=== PATIENT | female | born 2000 | race Caucasian/White ===

== ENCOUNTER 2020-08-13 06:09 | Emergency (ER) | payer OTHER ==
[~2020-08-13] VITALS: Ht 165.1 cm; Wt 64.0 kg
[2020-08-13] MEDS ORDERED: ONDANSETRON ODT 4 MG ONE (06:40)
[2020-08-13] MEDS ORDERED: ONDANSETRON ODT 4 MG PO ONE (07:00)
[2020-08-13 07:02] LABS: BASOPHILS % (AUTO) 0 % (0-1); EOSINOPHILS % (AUTO) 1 % (1-7); LYMPHOCYTES % (AUTO) 36 % (22-44); MEAN CORPUSCULAR HEMOGLOBIN 30.2 pg (27.0-34.8); MEAN CORPUSCULAR HGB CONC 33.8 g/dL (32.4-35.8); MEAN PLATELET VOLUME 10.3 fL (7.4-10.4); MONOCYTES % (AUTO) 5 % (2-9); NEUTROPHILS % (AUTO) 58 % (42-75); PLATELET COUNT 209 x10^3/uL (130-400); RED BLOOD COUNT 4.78 x10^6/uL (3.82-5.3); RED CELL DISTRIBUTION WIDTH 12.9 % (9.6-15.2)
[2020-08-13 07:04] LABS: MD NO
[2020-08-13 07:15] LABS: ALANINE AMINOTRANSFERASE 18 U/L (12-78); ALBUMIN 3.6 g/dL (3.4-5.0); ANION GAP 7 mmol/L (5-15); CALCIUM 9.2 mg/dL (8.5-10.1); CHLORIDE 109 mmol/L (98-107); CREATININE 0.87 mg/dL (0.55-1.02)
[2020-08-13 07:19] LABS: ALKALINE PHOSPHATASE 47 U/L (45-117); BILIRUBIN,TOTAL 0.3 mg/dL (0.2-1.0); TOTAL PROTEIN 7.6 g/dL (6.4-8.2)
--- NOTE | 2020-08-13 07:22 | NUR ---
Pt here for N/V since 399. Medicated for nausea. Labs/UA sent. Provided with ice chips.
[2020-08-13 07:30] LABS: MICROSCOPIC INDICATED
[2020-08-13 08:19] VITALS: BP 97/61
== END 2020-08-13 08:21 | disposition home or self-care (01) ==
LOC: ED 07:35
DX: R11.2 Nausea with vomiting, unspecified (principal); R61 Generalized hyperhidrosis
CPT/HCPCS: 36415; 80053; 81001; 83690; 84703; 85025; 87086; 99283; Q0162